=== PATIENT | female | born 1985 | race Caucasian/White ===

== ENCOUNTER 2018-07-13 09:21 | Emergency (ER) | payer BC, MEDICAID, SELFPAY ==
[~2018-07-13] VITALS: Ht 152.4 cm; Wt 70.9 kg
[2018-07-13] MEDS ORDERED: NS 1,000 ML IV ONE (10:00)
[2018-07-13 10:10] LABS: BASO % 0.3 % (0.0-1.0); EOS % 0.3 % (0.0-3.0); HEMATOCRIT 43.6 % (36.0-47.0); HEMOGLOBIN 14.8 g/dl (12.0-15.5); LYMPH # 1.3 10^3/uL (1.5-4.5); LYMPH % 17.7 % (24.0-44.0); MEAN CORPUSCULAR HEMOGLOBIN 32.7 pg (27.0-33.0); MEAN CORPUSCULAR HGB CONC 33.9 g/dl (32.0-36.5); MEAN CORPUSCULAR VOLUME 96.5 fl (80.0-96.0); MONO # 0.7 10^3/uL (0.0-0.8); MONO % 9.1 % (0.0-5.0); NEUTROPHILS # 5.3 10^3/uL (1.8-7.7); NEUTROPHILS % 72.3 % (36.0-66.0); PLATELET COUNT, AUTOMATED 193 10^3/uL (150-450); RED BLOOD COUNT 4.52 10^6/uL (4.00-5.40); WHITE BLOOD COUNT 7.3 10^3/uL (4.0-10.0)
[2018-07-13 10:39] LABS: ALBUMIN 4.3 GM/DL (3.2-5.2); ALT/SGPT 54 U/L (12-78); BILIRUBIN,TOTAL 0.3 MG/DL (0.2-1.0); BLOOD UREA NITROGEN 10 MG/DL (7-18); CALCIUM LEVEL 8.9 MG/DL (8.5-10.1); CARBON DIOXIDE LEVEL 28 MEQ/L (21-32); CHLORIDE LEVEL 105 MEQ/L (98-107); CREATININE FOR GFR 0.63 MG/DL (0.55-1.30); GLOMERULAR FILTRATION RATE > 60.0 (>60); GLUCOSE, FASTING 88 MG/DL (70-100); HCG, SERUM QUANTITATIVE 8 MIU/ML; POTASSIUM SERUM 3.5 MEQ/L (3.5-5.1); SODIUM LEVEL 141 MEQ/L (136-145); TOTAL PROTEIN 7.8 GM/DL (6.4-8.2)
--- NOTE | 2018-07-13 10:53 | REP ---
Clinical: Vaginal bleeding with positive test. Technique: Transabdominal and transvaginal first trimester obstetrical ultrasound with color Doppler evaluation. Findings: Heterogeneous anteverted uterus measures 8.5 x 4.4 x 5.4 cm. Endometrial complex measures 8.1 mm thickness. Right intramural fibroid measures 1.2 x 1.1 x 2.0 cm; left intramural fibroid measures 2.2 x 1.6 x 1.2 cm. No intrauterine identified. The left ovary is not visualized. The right ovary is normal in vascularity (RI 0.48) without torsion and measures 3.1 x 1.2 x 2.6 cm including 1.7 cm and 1.2 cm hemorrhagic cysts. No pelvic fluid or adnexal mass lesion. Impression: 1. Heterogeneous myomatous uterus without evidence for intrauterine . Differential diagnosis may include early , missed , and less likely ectopic cannot be excluded. Electronically Signed by Cory Meeks MD 07/13/2018 10:44 A
[2018-07-13 11:49] VITALS: BP 110/56
[2018-07-13] MEDS ORDERED: REGL10TA6 PO (12:13)
[2018-07-13] MEDS ORDERED: METOCLOPRAMIDE 10 MG TAB PO ONE (12:30)
== END 2018-07-13 12:34 | disposition home or self-care (01) ==
LOC: M ED 09:21
DX: N93.9 Abnormal uterine and vaginal bleeding, unspecified (principal); Z32.01 Encounter for pregnancy test, result positive; F17.200 Nicotine dependence, unspecified, uncomplicated; Z91.040 Latex allergy status; Z91.048 Other nonmedicinal substance allergy status

== ENCOUNTER → 2019-02-18 | Outpatient (REF) | payer OTHER ==
[~2019-02-18] MED LIST: REGL10TA6 PO
[2019-02-21 14:27] LABS: HPV HYBRID CAPTURE II Positive (Negative)
== END ==
LOC: M LAB LCGH 12:00
PROVIDERS: ATTEND Obstetrics & Gynecology
DX: Z12.4 Encounter for screening for malignant neoplasm of cervix (principal)

== ENCOUNTER → 2020-04-17 | Outpatient (REF) | payer OTHER | LOC: M LAB REF 13:55 | PROVIDERS: ATTEND Physician Assistant | DX: R30.0 Dysuria (principal) ==